=== PATIENT | male | born 1970 | race Caucasian/White ===

== ENCOUNTER 2016-12-10 12:01 | Emergency (ER) | payer OTHER ==
[~2016-12-10] VITALS: Ht 185.4 cm; Wt 112.5 kg
[~2016-12-10 12:01] MED LIST: CREON 120000 U-1 ECC PO; OXYCODONE HYDRO10 M1 PO; PRILOSEC 20MG C20 MG PO
[2016-12-10 12:04] VITALS: BP 131/80
--- NOTE | 2016-12-10 12:48 | RADIOLOGY REPORT ---
EXAMINATION: XR TOES, RIGHT CLINICAL INFORMATION: Stubbed toe of right foot. Pain and swelling. COMPARISON: None TECHNIQUE: 3 views of the right toes were obtained. FINDINGS: There is an oblique, nondisplaced fracture of the diaphysis of the proximal phalanx of the fourth toe. Otherwise, the examined bones are intact. The joint spaces are normal. No malalignment. No radiopaque foreign body. IMPRESSION: There is an acute, nondisplaced, oblique fracture of the diaphysis of the proximal phalanx of the fourth toe.
--- NOTE | 2016-12-10 13:12 | ED ANKLE/FOOT INJURY COMPLAINT ---
History of Present Illness General Chief Complaint: Foot or Ankle Injury Stated Complaint: PT HAVING PROBLEM WITH 2 TOE ON THE RIGHT FOOT Source: patient, family Exam Limitations: no limitations Vital Signs & Intake/Output Vital Signs & Intake/Output Vital Signs Date Time Temp Pulse Resp B/P B/P Pulse O2 O2 Flow FiO2 Mean Ox Delivery Rate 12/10 1204 97.7 80 18 131/80 98 Room Air Allergies Coded Allergies: NO KNOWN ALLERGIES (04/24/14) Reconcile Medications Hydrocodone/Acetaminophen (Vicodin 5-300 MG Tablet) 5 MG-300 MG TABLET 1 TAB PO Q6 PRN severe pain may cause drowsiness LIPASE/PROTEASE/AMYLASE (Rossi Melissa 24,000 Units Capsule) 24-76-120K CAPSULE. 1 TAB PO DAILY PANCREATITIS (Reported) Omeprazole (Prilosec) 20 MG CAPSULE. 1 TAB PO DAILY GERD (Reported) OXYCODONE HCL (Oxycodone Hydrochloride) 10 MG TABLET 1 TAB PO Q6P PRN MOD TO SEVERE PAIN Triage Note: PT STATES THAT HE STUBBED HIS R SECOND TOE ON TABLE 30 MINUTES AGO.REFUSES MEDS AT TRIAGE Triage Nurses Notes Reviewed? yes HPI: Patient is a 46-year-old male presents complaining of right fourth toe pain. Patient stubbed his toe against either a chair or the leg of a table approximately 30 minutes prior to arrival. Pain is sharp pain intermittently shooting up the foot that is moderate at rest, severe with palpation and movement. When patient touched his toe at home he felt a bone crunching sensation. Patient has not taken any medication for his symptoms prior to arrival. Patient did not fall to the ground when this occurred. Patient denies numbness. Past History Travel History Traveled to [place] past 21 day No Medical History Any Pertinent Medical History? see below for history Neurological: NONE EENT: NONE Cardiovascular: NONE Respiratory: NONE Gastrointestinal: pancreatitis Hepatic: NONE Renal: NONE Musculoskeletal: NONE Endocrine: hypothyroidism GATEMAN/Reproductive: NONE History of MRSA: No History of VRE: No History of CDIFF: No Surgical History Surgical History: tonsillectomy, thyroidectomy, multiple endoscopies, cholecystectomy Psychosocial History Who do you live with Spouse Services at Home None What is your primary language Romansh Tobacco Use: Never used ETOH Use: denies use Illicit Drug Use: denies illicit drug use Family History Family History, If Any: SISTER Relation not specified for: FHx: Crohn's disease Hx Contributory? No Review of Systems Review of Systems Constitutional: Reports: no symptoms. Cardiovascular: Denies: chest pain. GI: Denies: abdominal pain. Musculoskeletal: Reports: see HPI. Denies: back pain, neck pain. Skin: Reports: no symptoms. Neurological/Psychological: Denies: numbness, paresthesia. Hematologic/Endocrine: Denies: bruising, bleeding. Immunologic/Allergic: Denies: splenectomy. Physical Exam Physical Exam General Appearance: well developed/nourished, alert, awake Head: atraumatic, normal appearance Eyes: Bilateral: normal appearance. Ears, Nose, Throat: hearing grossly normal Neck: normal inspection, full range of motion Cardiovascular/Respiratory: no respiratory distress Back: normal inspection, normal range of motion Leg/Knee/Thigh Left: normal range of motion Leg/Knee/Thigh Right: normal range of motion Ankle Right: normal inspection, normal range of motion, nontender Foot Right: right 4th toe tenderness. Normal alignment. Normal sensation to light touch. Neuro/Vascular: normal motor function, normal sensation Tendon: normal tendon function Psychiatric: awake, alert, oriented x 3 Skin: intact, normal color, warm/dry Progress Differential Diagnosis: fracture, dislocation, sprain, contusion Plan of Care: Current Medications Sig/Pastor Start time Last Medication Dose Stop Time Status Admin Acetaminophen/ 1 TAB ONCE ONE 12/10 1330 AC Hydrocodone Bitart 12/10 1331 (Vicodin) No apparent neurovascular abnormalities on exam no apparent neurovascular abnormalities on exam. 4th toe amado taped by nurse and rigid soled ortho shoe placed. (DIEGO BARNARD,CAROLINE) Diagnostic Imaging: Viewed by Me: Radiology Read. Discussed w/RAD: Radiology Read. Radiology Impression: PATIENT: CAROLINE SPAULDING PRESENT AGE: 46 PATIENT ACCOUNT NO: [id number] : 69 LOCATION: [facility] ORDERING PHYSICIAN: SABINA CALVIN DO SERVICE DATE: 12/10/16 EXAM TYPE: RAD - XRY-TOES, RIGHT EXAMINATION: XR TOES, RIGHT CLINICAL INFORMATION: Stubbed toe of right foot. Pain and swelling. COMPARISON: None TECHNIQUE: 3 views of the right toes were obtained. FINDINGS: There is an oblique, nondisplaced fracture of the diaphysis of the proximal phalanx of the fourth toe. Otherwise, the examined bones are intact. The joint spaces are normal. No malalignment. No radiopaque foreign body. IMPRESSION: There is an acute, nondisplaced, oblique fracture of the diaphysis of the proximal phalanx of the fourth toe. DICTATED BY: VALERIA ANDREWS MD DATE/TIME DICTATED:12/10/161242 CUFF SETTER OVERLOCK:MACK DATE/TIME TRANSCRIBED:12/10/161242 CONFIDENTIAL, DO NOT COPY WITHOUT APPROPRIATE AUTHORIZATION. <Electronically signed in Other Vendor System> SIGNED BY: VALERIA ANDREWS MD 12/10/168 Departure Departure Time of Disposition: 1325 Disposition: HOME OR SELF CARE Condition: Stable Clinical Impression Primary Impression: Toe fracture, right Qualifiers: Encounter type: initial encounter Toe: lesser toe Fracture type: closed Phalanx: proximal Fracture alignment: nondisplaced Qualified Code: S92.514A - Nondisplaced fracture of proximal phalanx of right lesser toe(s), initial encounter for closed fracture Referrals: SHAYNA PRINCE,DANTE CHAO MD,JACIEL Gates (PCP/Family) Additional Instructions: Rest, elevate her foot, amado tape the toe for splinting and to aid with healing , where rigid bottom shoe for support. Follow-up with your orthopedist Dr. Kimble for further evaluation. Call for appointment. Departure Forms: Customer Survey General Discharge Information Prescriptions: Current Visit Scripts Hydrocodone/Acetaminophen (Vicodin 5-300 MG Tablet) 1 TAB PO Q6 PRN severe pain #10 TAB may cause drowsiness
[2016-12-10] MEDS ORDERED: VICODIN 5-3001 EACH PO (13:27)
== END 2016-12-10 13:35 ==
LOC: ERH 12:01
DX: S92.514A Nondisplaced fracture of proximal phalanx of right lesser toe(s), initial encounter for closed fracture (principal); W22.03XA Walked into furniture, initial encounter; Y93.9 Activity, unspecified; Y92.9 Unspecified place or not applicable
CPT/HCPCS: 73660-RT